=== PATIENT | female | born 1970 | race Caucasian/White ===

== ENCOUNTER → 2020-05-02 | Outpatient (CLI) | payer BC ==
--- NOTE | 2020-05-02 09:50 | MR ---
EXAMINATION TYPE: MR brain wo/w con DATE OF EXAM: 05/02/2020 COMPARISON: None HISTORY: Headaches, muscle pain, dizziness TECHNIQUE: Multiplanar, multisequence images of the brain and brainstem is performed without and with IV contras t, utilizing 9 mL intravenous Gadavist . FINDINGS: Diffusion weighted images demonstrate no evidence of a recent infarct or other diffusion ab normality. There is no extra-axial fluid collection or significant white matter signal abnormality. The ventricular system and cisternal spaces are normal in size and appearance. The brain volume is age appropriate. Midline structures demonstrate some mild increased signal in the left side of the viet and inversion recovery T2-weighted sequences partial clinical significance, some scattered hyperintensities in the deep white matter noted, sagittal image #26 of the inversion recovery dataset corresponds to axial im age #20, lesion measures only approximately 3 mm in the periventricular white matter, possibly left f rontal white matter similar size axial image #19 and also axial image 20, only approximately 3-5 lesi ons, right frontal white matter axial image 24 also measures only 3 mm. The craniocervical junction appears within normal limits. Post contrast images demonstrate no abnormal enhancement. The dural ve nous sinuses appear patent. The visualized sinuses are clear and the globes are intact. IMPRESSION: Nonspecific hyperintensities within the white matter of questionable clinical significanc e, findings may be indicative of underlying hypertension, migraine headaches, vasculitis, Lyme diseas e, multiple sclerosis felt to be less likely.
== END | disposition home or self-care (01) ==
LOC: RADMRIMAIN 07:28
PROVIDERS: ATTEND Nurse Practitioner Adult Health
DX: R90.89 Other abnormal findings on diagnostic imaging of central nervous system (principal)
CPT/HCPCS: 70553; A9585

== ENCOUNTER → 2020-06-13 | Outpatient (CLI) | payer BC ==
--- NOTE | 2020-06-13 14:00 | MR ---
EXAMINATION TYPE: MR cspine/lspine wo/w con DATE OF EXAM: 06/13/2020 COMPARISON: NONE HISTORY: 50-year-old female Stiffness, pain, ? MS. R90.82 G37.9 Technique: Multiplanar, multisequence images of the cervical spine followed by the lumbar spine were obtained before and after administration of 9 mL intravenous Gadavist gadolinium contrast. Sagittal PD sequence was added per MS protocol. FINDINGS: CERVICAL SPINE: No craniocervical junction abnormality, predental space widening, or prevertebral soft tissue swellin g. Straightening of the normal cervical doses with preserved alignment. Mild degenerative disc disease upper and mid cervical spine with mild disc desiccation and posterior disc bulging. Scattered mild facet and uncovertebral joint arthropathy. At C2-C3, mild facet arthropathy. No canal or foraminal stenosis. At C3-C4, facet arthropathy. Left-sided uncovertebral joint arthropathy. No significant canal or fora roel stenosis. At C4-C5, broad-based discussed by complex with uncovertebral joint and facet degenerative change. Th ere is mild to moderate left and mild right neuroforaminal stenosis. Disc osteophyte complex abuts th e ventral cord. Minimal narrowing of the spinal canal here. At C5-C6, broad-based discussed by complex with uncovertebral joint and facet degenerative change. Mi ld bilateral neuroforaminal stenoses. Impression onto the ventral thecal sac without significant spin al canal stenosis. At C6-C7, facet arthropathy without significant canal or foraminal stenosis. At C7/T1, no significant canal or foraminal stenosis. No abnormal enhancement within the spinal canal. Normal course and signal intensity of the cervical spinal cord. LUMBAR SPINE: Vertebral body heights are preserved and alignment is maintained. Straightening of the normal lumbar lordosis. Degenerative disc desiccation at L5-S1 with an enhancing posterior annular fissure and mild posterior disc bulge. Mild facet arthropathy lower lumbar spine. Fatty matrix hemangioma within the L3 and L4 vertebral bodies. Mildly diminished marrow signal sugges ts prominent red marrow. No definite bone marrow placement. Conus medullaris is normal. No abnormal enhancement otherwise seen within the spinal canal. No large focal disc herniation or significant spinal canal stenosis. On the right, no significant or foraminal stenosis. However, at L5-S1, disc material closely approach es and may abut the traversing right S1 nerve root. On the left, no significant neuroforaminal stenosis. No prevertebral or paravertebral soft tissue abnormality seen. COMBINED IMPRESSION: CERVICAL SPINE: 1. Mild degenerative disc disease upper and mid cervical spine. Scattered facet and uncovertebral young nt arthropathy. 2. Mild neuroforaminal stenoses as outlined above, mild to moderate on the left at C4-C5. 3. Posterior disc bulge at C4-C5 abuts the ventral cord minimally narrowing the spinal canal. 4. No cord compression or demyelinating plaques identified. LUMBAR SPINE: 1. Degenerative disc desiccation with small posterior disc bulge and annular fissure at L5-S1. Disc m aterial closely approaches and may abut the traversing right S1 nerve root at this level. 2. No significant spinal canal or foraminal stenosis seen.
== END | disposition home or self-care (01) ==
LOC: RADMRIMAIN 10:24
PROVIDERS: ATTEND Internal Medicine
DX: M48.02 Spinal stenosis, cervical region (principal); M51.27 Other intervertebral disc displacement, lumbosacral region; M50.221 Other cervical disc displacement at C4-C5 level; M50.321 Other cervical disc degeneration at C4-C5 level; M47.812 Spondylosis without myelopathy or radiculopathy, cervical region; G37.9 Demyelinating disease of central nervous system, unspecified
CPT/HCPCS: 72156; 72158; A9585

== ENCOUNTER → 2020-06-15 | Outpatient (CLI) | payer BC ==
--- NOTE | 2020-06-15 13:25 | MR ---
EXAMINATION TYPE: MR thoracic spine wo/w con DATE OF EXAM: 06/15/2020 COMPARISON: Correlation cervical and lumbar spine 06/13/2020 HISTORY: 50-year-old female Mid back Pain, MS Technique: Multiplanar, multisequence images of the thoracic spine were obtained before and after adm inistration of 9 mL intravenous Gadavist gadolinium contrast. Additional sagittal PD sequence per MS protocol. FINDINGS: Vertebral body heights are preserved and alignment is maintained. A few scattered fatty matrix hemangioma suggests within the T8 and T9 vertebral bodies. No suspicious bone marrow replacement. Disc interspaces are maintained. No prevertebral or paravertebral soft tissue abnormality. There is a right paracentral disc herniation extending towards the neuroforamen at T2-T3 without any significant spinal canal or neuroforaminal stenosis. Otherwise, no focal disc herniation or spinal ca nal stenosis. Mild facet arthropathy and thoracic spine particularly on the left at T2-T3. Mild left-sided neurofor aminal stenosis at this level. Normal course, caliber, and signal intensity of the thoracic spinal cord. No abnormal enhancement wi thin the spinal canal. IMPRESSION: 1. Thoracic spinal cord without any demyelinating plaques identified. 2. Small right paracentral disc herniation extending towards the neural foramen at T2-T3. No resultan t spinal canal or neuroforaminal stenosis. 3. Some facet degenerative change on the left at T2-T3 mildly narrowing the left-sided neuroforamen.
== END | disposition home or self-care (01) ==
LOC: RADMRIMAIN 10:23
PROVIDERS: ATTEND Nurse Practitioner Adult Health
DX: M51.24 Other intervertebral disc displacement, thoracic region (principal); M47.894 Other spondylosis, thoracic region; R90.82 White matter disease, unspecified; G37.9 Demyelinating disease of central nervous system, unspecified; R27.0 Ataxia, unspecified
CPT/HCPCS: 72157; A9585

== ENCOUNTER → 2020-12-05 | Outpatient (CLI) | payer BC | END | disposition home or self-care (01) | LOC: LABWHC1 15:43 | PROVIDERS: ATTEND Internal Medicine | DX: R05 Cough (principal); R07.0 Pain in throat; Z20.822 Contact with and (suspected) exposure to COVID-19 | CPT/HCPCS: 87081; U0003; C9803 ==

== ENCOUNTER → 2021-08-30 | Outpatient (CLI) | payer BC ==
--- NOTE | 2021-08-30 11:17 | US ---
EXAMINATION TYPE: US abdomen complete DATE OF EXAM: 08/30/2021 COMPARISON: US, MRCP CLINICAL HISTORY: K51.90 Ulcerative colitis. EXAM MEASUREMENTS: Liver Length: 12.3 cm Gallbladder Wall: 0.2 cm CBD: 0.4 cm Spleen: 12.6 cm Right Kidney: 12.4 x 4.9 x 5.0 cm Left Kidney: 12.4 x 5.1 x 5.3 cm Pancreas: slightly obscured by overlying bowel, portions visualized wnl Liver: wnl Gallbladder: possible sludge, seen LLD Evidence for sonographic Goldstein's sign: no CBD: wnl Spleen: upper limits of normal in size Right Kidney: measures slightly large Left Kidney: measures slightly large Upper IVC: wnl Abd Aorta: some portions obscured by overlying bowel gas, portions visualized wnl IMPRESSION: 1. There may be some mild sludge within the gallbladder. No shadowing gallstones are evident. 2. No suspicious acute changes by ultrasound of the abdomen
== END | disposition home or self-care (01) ==
LOC: RADUSWWP 08:18
PROVIDERS: ATTEND Internal Medicine
DX: K82.8 Other specified diseases of gallbladder (principal)
CPT/HCPCS: 76700

== ENCOUNTER → 2021-09-27 | Outpatient (CLI) | payer BC ==
--- NOTE | 2021-09-27 09:46 | NM ---
EXAMINATION TYPE: NM hepatobiliary w EF DATE OF EXAM: 09/27/2021 COMPARISON: Ultrasound 08/30/2021 HISTORY: K 82.8 TECHNIQUE: After the intravenous administration of 4.9 mCi Tc 99m Mebrofenin hepatobiliary scintigrap hy is performed. Immediate images post injection. FINDINGS: There is satisfactory initial accumulation of tracer by the liver. The gallbladder is visualized wit hin 8 minutes. The small bowel activity is noted within 38 minutes. At one hour 8 ounces of oral en sure plus is given to mimic CCK and gallbladder ejection fraction is calculated at 80 %, in the elisa l range. Therefore there is no scintigraphic evidence of cystic or common bile duct obstruction to s uggest acute cholecystitis or gallbladder dyskinesia. IMPRESSION: Exam is within normal limits.
== END | disposition home or self-care (01) ==
LOC: RADNMMAIN 06:59
PROVIDERS: ATTEND Surgery Plastic and Reconstructive Surgery
DX: K82.8 Other specified diseases of gallbladder (principal); K85.10 Biliary acute pancreatitis without necrosis or infection
CPT/HCPCS: 78226; A9537

== ENCOUNTER 2021-10-31 09:07 | Observation (INO) | payer BC ==
[2021-10-31 09:49] LABS: Basophils % (A) 0 %; Eosinophils # (A) 0.1 k/uL (0-0.7); Eosinophils % (A) 2 %; HCT 45.6 % (34.0-46.0); HGB 14.9 gm/dL (11.4-16.0); Lymphocytes # (A) 1.5 k/uL (1.0-4.8); Lymphocytes % (A) 21 %; MCH 32.1 pg (25.0-35.0); MCHC 32.8 g/dL (31.0-37.0); MCV 97.8 fL (80.0-100.0); Mean Platelet Volume 8.2; Monocytes # (A) 0.3 k/uL (0-1.0); Monocytes % (A) 4 %; Neutrophils % (A) 71 %; Platelet Count 249 k/uL (150-450); RBC 4.66 m/uL (3.80-5.40); RDW 11.7 % (11.5-15.5)
--- NOTE | 2021-10-31 09:51 | ED ---
Abdominal Pain HPI - General Chief Complaint: Abdominal Pain Stated Complaint: Abdominal pain Time Seen by Provider: 10/31/21 09:20 Source: patient Mode of arrival: ambulatory Limitations: no limitations - History of Present Illness Initial Comments: 51-year-old female presents emergency room with reported right upper quadrant abdominal pain. States the pain has been present for the past several months. She has been under the care of Dr. Piper. She had a previous ultrasound which demonstrated sludge in the gallbladder. She is doubled for surgery tomorrow for cholecystectomy. Patient states she's had increasing pain. She called Dr. Olmos's office who recommended that she go into the emergency department for evaluation. She denies any fevers. Admits to nausea without vomiting. No diarrhea. No other alleviating, precipitating or modifying factors - Related Data Home Medications Medication Instructions Recorded Confirmed Acetaminophen [Tylenol] 325 mg PO QID PRN 10/28/21 10/31/21 Ascorbic Acid [Vitamin C] 500 mg PO DAILY 10/28/21 10/31/21 Cholecalciferol [Vitamin D3 (25 25 mcg PO DAILY 10/28/21 10/31/21 Mcg = 1000 Iu)] Mesalamine [Pentasa] 500 mg PO 5XD 10/28/21 10/31/21 Omeprazole 20 mg PO DAILY 10/28/21 10/31/21 Potassium Gluconate [Potassium 99 mg PO DAILY 10/28/21 10/31/21 Gluconate ER] azaTHIOprine [Imuran] 50 mg PO HS 10/28/21 10/31/21 Previous Rx's Medication Instructions Recorded Acetaminophen Tab [Tylenol Tab] 1,000 mg PO Q6HR PRN #30 tablet 10/31/21 Ibuprofen [Motrin] 600 mg PO Q8HR PRN #30 tab 10/31/21 Simethicone [Gas-X] 125 mg PO AC-TID PRN #20 capsule 10/31/21 Allergies Allergy/AdvReac Type Severity Reaction Status Date / Time albuterol Allergy Severe Anaphylaxis- Verified 10/31/21 11:18 ALLERGIC TO THE SUSPENSION IN RX. meperidine HCl [From Demerol] AdvReac Nausea & Verified 10/31/21 11:18 Vomiting Review of Systems ROS Statement: Those systems with pertinent positive or pertinent negative responses have been documented in the HPI. ROS Other: All systems not noted in ROS Statement are negative. Past Medical History Past Medical History: Seizure Disorder Additional Past Medical History / Comment(s): ulcerative colitis. enlarged spleen possible crohns per pancreatitis History of Any Multi-Drug Resistant Organisms: None Reported Past Surgical History: Breast Surgery, Uterine Ablation Additional Past Surgical History / Comment(s): had benign tumor removed from right breast 20 yrs ago Past Anesthesia/Blood Transfusion Reactions: No Reported Reaction, Motion Sickness, Postoperative Nausea & Vomiting (PONV) Past Psychological History: Anxiety Smoking Status: Former smoker Past Alcohol Use History: None Reported Past Drug Use History: None Reported - Past Family History Mother Family Medical History: Cancer, Hypertension Additional Family Medical History / Comment(s): colon cancer General Exam Limitations: no limitations General appearance: alert, in no apparent distress Head exam: Present: atraumatic, normocephalic, normal inspection Eye exam: Present: normal appearance, PERRL, EOMI. Absent: scleral icterus, conjunctival injection, periorbital swelling ENT exam: Present: normal exam, mucous membranes moist Neck exam: Present: normal inspection. Absent: tenderness, meningismus, lymphadenopathy Respiratory exam: Present: normal lung sounds bilaterally. Absent: respiratory distress, wheezes, rales, rhonchi, stridor Cardiovascular Exam: Present: regular rate, normal rhythm, normal heart sounds. Absent: systolic murmur, diastolic murmur, rubs, gallop, clicks GI/Abdominal exam: Present: soft, tenderness (RUQ), normal bowel sounds. Absent: distended, guarding, rebound, rigid Extremities exam: Present: normal inspection, full ROM, normal capillary refill. Absent: tenderness, pedal edema, joint swelling, calf tenderness Back exam: Present: normal inspection Neurological exam: Present: alert, oriented X3, CN II-XII intact Psychiatric exam: Present: normal affect, normal mood Skin exam: Present: warm, dry, intact, normal color. Absent: rash Course Vital Signs 10/31/21 10/31/21 09:16 14:00 Temperature 98.3 F Pulse Rate 85 Respiratory 18 18 Rate Blood Pressure 122/77 O2 Sat by Pulse 98 Oximetry Medical Decision Making - Medical Decision Making Upon arrival patient was placed into room 11. A thorough history and physical exam was performed. IV is established laboratory studies are conducted. Patient is offered something for pain and for nausea however she refuses. Laboratory studies are reviewed and are within normal limits. HCG negative. Ultrasound demonstrates no acute process. I did seek with Dr. Olmos who requested the patient be admitted to her service. She is made nothing by mouth and taken to the floor in stable condition - Lab Data Result diagrams: 11/01/21 11:38 11/01/21 11:38 Lab Results 10/31/21 10/31/21 Range/Units 09:43 09:43 WBC 7.0 (3.8-10.6) k/uL RBC 4.66 (3.80-5.40) m/uL Hgb 14.9 (11.4-16.0) gm/dL Hct 45.6 (34.0-46.0) % MCV 97.8 (80.0-100.0) fL MCH 32.1 (25.0-35.0) pg MCHC 32.8 (31.0-37.0) g/dL RDW 11.7 (11.5-15.5) % Plt Count 249 (150-450) k/uL MPV 8.2 Neutrophils % 71 % Lymphocytes % 21 % Monocytes % 4 % Eosinophils % 2 % Basophils % 0 % Neutrophils # 5.0 (1.3-7.7) k/uL Lymphocytes # 1.5 (1.0-4.8) k/uL Monocytes # 0.3 (0-1.0) k/uL Eosinophils # 0.1 (0-0.7) k/uL Basophils # 0.0 (0-0.2) k/uL Sodium 139 (137-145) mmol/L Potassium 4.1 (3.5-5.1) mmol/L Chloride 105 (98-107) mmol/L Carbon Dioxide 24 (22-30) mmol/L Anion Gap 10 mmol/L BUN 11 (7-17) mg/dL Creatinine 0.61 (0.52-1.04) mg/dL Est GFR (CKD-EPI)AfAm >90 (>60 ml/min/1.73 sqM) Est GFR (CKD-EPI)NonAf >90 (>60 ml/min/1.73 sqM) Glucose 101 H (74-99) mg/dL Calcium 9.3 (8.4-10.2) mg/dL Total Bilirubin 0.9 (0.2-1.3) mg/dL AST 35 (14-36) U/L ALT 38 H (4-34) U/L Alkaline Phosphatase 87 (38-126) U/L Total Protein 7.7 (6.3-8.2) g/dL Albumin 4.7 (3.5-5.0) g/dL Lipase 165 (23-300) U/L - EKG Data EKG Comments: EKG demonstrates normal sinus rhythm with a ventricular rate of 83. DE intervals 158. QRS 96. QTC of 451. No acute ST segment elevations or depressions concerning for ischemic changes Disposition Clinical Impression: Abdominal pain Disposition: ADMITTED IP TO THIS HOSP Condition: Stable Is patient prescribed a controlled substance at d/c from ED?: No Decision to Admit Reason: Admit from EC Decision Time: 11:18
[2021-10-31 09:58] LABS: ALT 38 U/L (4-34); AST 35 U/L (14-36); African American GFR (CKD) >90 (>60 ml/min/1.73 sqM); Albumin 4.7 g/dL (3.5-5.0); Alkaline Phosphatase 87 U/L (38-126); Anion Gap 10 mmol/L; Blood Urea Nitrogen 11 mg/dL (7-17); Calcium 9.3 mg/dL (8.4-10.2); Carbon Dioxide 24 mmol/L (22-30); Chloride 105 mmol/L (98-107); Glucose 101 mg/dL (74-99); Lipase 165 U/L (23-300); Non-African American GFR(CKD) >90 (>60 ml/min/1.73 sqM); Potassium 4.1 mmol/L (3.5-5.1); Sodium 139 mmol/L (137-145); Total Bilirubin 0.9 mg/dL (0.2-1.3); Total Protein 7.7 g/dL (6.3-8.2)
--- NOTE | 2021-10-31 10:40 | US ---
EXAMINATION TYPE: US gallbladder DATE OF EXAM: 10/31/2021 COMPARISON: 08/30/2020 CLINICAL HISTORY: ruq abd pain. EXAM MEASUREMENTS: Liver Length: 13.6 cm Gallbladder Wall: 0.1 cm CBD: 0.3 cm Right Kidney: 12.1 x 4.6 x 4.4 cm Pancreas: Obscured by bowel gas Liver: wnl Gallbladder: wnl Evidence for sonographic Goldstein's sign:no CBD: wnl Right Kidney: wnl IMPRESSION: 1. No acute process as visualized.
[2021-10-31 11:08] LABS: Appearance,Urine Cloudy (Clear); Bacteria,Urine Occasional /hpf; Bilirubin,Urine Negative (Negative); Blood,Urine Moderate (Negative); Color,Urine Yellow; Glucose,Urine (UA) Negative (Negative); Ketones,Urine Negative (Negative); Leukocyte Esterase,Urine Negative (Negative); Mucus,Urine Rare /hpf; Nitrite,Urine Negative (Negative); Protein,Urine Trace (Negative); RBC,Urine 4 /hpf (0-5); Specific Gravity,Urine 1.021 (1.001-1.035); Squamous Epithelial Cell,Urine 5 /hpf (0-4); Urobilinogen,Urine <2.0 mg/dL (<2.0); WBC,Urine 1 /hpf (0-5)
[2021-10-31] MEDS ORDERED: NALOXONE 0.4 MG/ML 1 ML VIAL IV PRN (11:18)
[2021-10-31] MEDS ORDERED: IOPAMIDOL CONTRAST (ORAL USE) VIAL PO PRN (11:42)
--- NOTE | 2021-10-31 13:50 | CT ---
EXAMINATION TYPE: CT abdomen pelvis w con DATE OF EXAM: 10/31/2021 COMPARISON: 02/19/2015 HISTORY: Abdominal pain CT DLP: 1141.9 mGycm CONTRAST: CT scan of the abdomen and pelvis is performed with Oral Contrast and with IV Contrast, patient injec alecia with 100 mL of Isovue 370. FINDINGS: LUNG BASES-: No visible nodule. No infiltrate. LIVER/GB: No calcified gallstones. No space occupying hepatic lesion. Biliary tree is of normal ca liber. PANCREAS: No inflammation. No distinct mass. SPLEEN: No splenic enlargement. No lesion seen. ADRENALS: No nodule. No thickening. KIDNEYS/BLADDER: No hydronephrosis. No nephrolithiasis. No distinct renal mass. Urinary bladder g rossly unremarkable. BOWEL: Normal appendix. Normal bowel caliber. No inflammation. GENITAL ORGANS: No gross abnormality. LYMPH NODES: No greater than 1cm abdominal or pelvic lymph nodes are appreciated. AORTA: No significant abnormality. OSSEOUS STRUCTURES: No significant abnormality is seen. OTHER: No significant additional abnormality is seen. IMPRESSION: 1. No significant abnormality to account for the patient's symptoms.
[2021-10-31] MEDS: SODIUM CHLORIDE 0.9% 1,000 ML IV SCH (14:00)
[2021-10-31] MEDS ORDERED: INDOCYANINE GREEN 25 MG VIAL IV STA (15:58)
[2021-10-31] MEDS ORDERED: SCOPOLAMINE 1.5MG/72HR PATCH TRANSDERM STA (15:58)
[2021-10-31] MEDS ORDERED: GABAPENTIN 300 MG CAP PO STA (15:58)
--- NOTE | 2021-10-31 15:58 | P.GSHP ---
History of Present Illness H&P Date: 10/31/21 CHIEF COMPLAINT: Severe abdominal pain HISTORY OF PRESENT ILLNESS: The patient is a 51 year old female who presents to the emergency room with moderate to severe epigastric including left upper quad rant abdominal pain. Patient has pre-existing history of gallbladder disorder. She reports her pain is worse after eating or moving along the epigastrium and left upper quadrant. Patient reports symptoms has been ongoing and became severe in the last 24-48 hours. She has Crohn's disease including hepatosplenomegaly. She also reports history of pancreatitis. Patient presented to the emergency room regarding severe abdominal pain. PAST MEDICAL HISTORY: See list and reviewed PAST SURGICAL HISTORY: See list and reviewed MEDICATIONS: See list and reviewed ALLERGIES: See list and reviewed SOCIAL HISTORY: See list and reviewed FAMILY HISTORY: See list and reviewed REVIEW OF ORGAN SYSTEMS: CONSTITUTIONAL: No fevers or chills. No recent weight loss. EYES: Denies any trouble with vision. No glasses. HEENT: No difficulties with hearing. No nosebleeds. No difficulty swallowing. RESPIRATORY: Denies pneumonia. Denies any troubles with breathing or dyspnea on exertion. CARDIOVASCULAR: Denies any chest pain, palpitations, or recent heart attacks. GASTROINTESTINAL: Has gastric subcu reflux disease including Crohn's disease. Hepatosplenomegaly. Has hepatomegaly. GENITOURINARY: Denies any blood in urine or increased urinary frequency. NEUROLOGICAL: Denies any numbness or tingling along the distal extremities. No seizure disorders or headaches. MUSCULOSKELETAL: Denies any back pain, stiffness or joint arthritis. SKIN: No current skin cancer. No rash. PSYCHIATRIC: Denies current depression or suicidal thoughts. Has generalized anxiety disorder. ENDOCRINE: Denies current thyroid disorders. Denies any blood sugar glucose intolerance. HEME/LYMPHATIC: Denies any lumps and bumps around the neck. No recent deep venous thrombosis. ALLERGY/IMMUNOLOGY: No immunoglobulin therapy. No immune deficiencies. BREAST: Denies current breast lumps, pain or nipple discharge. PHYSICAL EXAM: VITALS: Reviewed CONSTITUTIONAL: Well developed and in no acute distress. EYES: Conjuctivae without sclera icterus. Extraocular movements grossly intact. HEAD, EARS, NOSE, THROAT: Moist buccal mucosa. Head is atraumatic, normocephalic. Hears conversational speech. No nasal drainage. NECK: Supple. No JV distention. No thyroidomegaly. RESPIRATORY: Non-labored respirations and equal bilateral excursions. No gross wheezes. CARDIOVASCULAR: Regular rate and rhythm. Palpable 2+ radial pulses. ABDOMEN: Tender epigastric including the left upper quadrant. No palpable m asses. LYMPH: No neck lymphadenopathy. MUSCULOSKELETAL: Nail and fingers with good capillary refill. SKIN: Warm and well perfused with good skin turgor. NEUROLOGIC: Cranial nerves II through XII grossly intact. No focal or lateralizing signs. PSYCH: Appropriate affect. Alert and oriented to person, place and time. Displays appropriate insight. CLINCAL LABS: Reviewed. ALT elevated. Lipase normal. IMAGING: Independently gallbladder ultrasound without dilation of the common bile duct. This is my independent interpretation. RADIOLOGY: Report reviewed. RECORDS: previous old records for her prior gallbladder ultrasound with gallbladder sludge and CT of the abdomen and pelvis splenomegaly. ASSESSMENT: 1. Moderate to severe epigastric including left upper quadrant abdominal pain. 2. Cholecystitis, clinical 3. Ulcerative colitis 4. Elevated ALT PLAN: 1. Due to her moderate severe pain, CT of the abdomen and pelvis also ordered. 2. Robotic cholecystectomy described for moderate severe epigastric abdominal pain. Laparoscopy with assessment of left upper quadrant also described. 3. Admission observation reviewed. ADDENDUM: CT of the on the pelvis and the pelvic reviewed demonstrating moderate stool blunted and redundancy of the left upper quadrant from the splenic flexure. Enlarged spleen including enlarged left lobe of the liver identified. This is my independent interpretation. PLAN: The patient's persistent symptoms including acute on chronic abdominal pa in, cholecystectomy described with possible laparoscopy. Benefits and risks were reviewed. Past Medical History Past Medical History: Seizure Disorder Additional Past Medical History / Comment(s): ulcerative colitis. enlarged spleen possible crohns per pancreatitis History of Any Multi-Drug Resistant Organisms: None Reported Past Surgical History: Breast Surgery, Uterine Ablation Additional Past Surgical History / Comment(s): had benign tumor removed from right breast 20 yrs ago Past Anesthesia/Blood Transfusion Reactions: No Reported Reaction, Motion Sickness, Postoperative Nausea & Vomiting (PONV) Past Psychological History: Anxiety Smoking Status: Former smoker Past Alcohol Use History: None Reported Past Drug Use History: None Reported - Past Family History Mother Family Medical History: Cancer, Hypertension Additional Family Medical History / Comment(s): colon cancer Medications and Allergies Home Medications Medication Instructions Recorded Confirmed Type Acetaminophen [Tylenol] 325 mg PO QID PRN 10/28/21 10/31/21 History Ascorbic Acid [Vitamin C] 500 mg PO DAILY 10/28/21 10/31/21 History Cholecalciferol [Vitamin D3 (25 25 mcg PO DAILY 10/28/21 10/31/21 History Mcg = 1000 Iu)] Mesalamine [Pentasa] 500 mg PO 5XD 10/28/21 10/31/21 History Omeprazole 20 mg PO DAILY 10/28/21 10/31/21 History Potassium Gluconate [Potassium 99 mg PO DAILY 10/28/21 10/31/21 History Gluconate ER] azaTHIOprine [Imuran] 50 mg PO HS 10/28/21 10/31/21 History Allergies Allergy/AdvReac Type Severity Reaction Status Date / Time albuterol Allergy Severe Anaphylaxis- Verified 10/31/21 11:18 ALLERGIC TO THE SUSPENSION IN RX. meperidine HCl [From Demerol] AdvReac Nausea & Verified 10/31/21 11:18 Vomiting Surgical - Exam Vital Signs Temp Pulse Resp BP Pulse Ox 98.3 F 85 18 122/77 98 10/31/21 09:16 10/31/21 09:16 10/31/21 09:16 10/31/21 09:16 10/31/21 09:16 Results - Labs 10/31/21 09:43 10/31/21 09:43 Abnormal Lab Results - Last 24 Hours (Table) 10/31/21 10/31/21 Range/Units 09:43 10:45 Glucose 101 H (74-99) mg/dL ALT 38 H (4-34) U/L Urine Appearance Cloudy H (Clear) Urine Protein Trace H (Negative) Urine Blood Moderate H (Negative) Ur Squamous Epith Cells 5 H (0-4) /hpf Urine Bacteria Occasional H (None) /hpf Urine Mucus Rare H (None) /hpf Diabetes panel 10/31/21 Range/Units 09:43 Sodium 139 (137-145) mmol/L Potassium 4.1 (3.5-5.1) mmol/L Chloride 105 (98-107) mmol/L Carbon Dioxide 24 (22-30) mmol/L BUN 11 (7-17) mg/dL Creatinine 0.61 (0.52-1.04) mg/dL Glucose 101 H (74-99) mg/dL Calcium 9.3 (8.4-10.2) mg/dL AST 35 (14-36) U/L ALT 38 H (4-34) U/L Alkaline Phosphatase 87 (38-126) U/L Total Protein 7.7 (6.3-8.2) g/dL Albumin 4.7 (3.5-5.0) g/dL Calcium panel 10/31/21 Range/Units 09:43 Calcium 9.3 (8.4-10.2) mg/dL Albumin 4.7 (3.5-5.0) g/dL Pituitary panel 10/31/21 Range/Units 09:43 Sodium 139 (137-145) mmol/L Potassium 4.1 (3.5-5.1) mmol/L Chloride 105 (98-107) mmol/L Carbon Dioxide 24 (22-30) mmol/L BUN 11 (7-17) mg/dL Creatinine 0.61 (0.52-1.04) mg/dL Glucose 101 H (74-99) mg/dL Calcium 9.3 (8.4-10.2) mg/dL Adrenal panel 10/31/21 Range/Units 09:43 Sodium 139 (137-145) mmol/L Potassium 4.1 (3.5-5.1) mmol/L Chloride 105 (98-107) mmol/L Carbon Dioxide 24 (22-30) mmol/L BUN 11 (7-17) mg/dL Creatinine 0.61 (0.52-1.04) mg/dL Glucose 101 H (74-99) mg/dL Calcium 9.3 (8.4-10.2) mg/dL Total Bilirubin 0.9 (0.2-1.3) mg/dL AST 35 (14-36) U/L ALT 38 H (4-34) U/L Alkaline Phosphatase 87 (38-126) U/L Total Protein 7.7 (6.3-8.2) g/dL Albumin 4.7 (3.5-5.0) g/dL Assessment and Plan (1) Cholecystitis Current Visit: Yes Status: Acute Code(s): K81.9 - CHOLECYSTITIS, UNSPECIFIED SNOMED Code(s): 43086073 (2) Epigastric pain Current Visit: Yes Status: Acute Code(s): R10.13 - EPIGASTRIC PAIN SNOMED Code(s): 51052593 (3) Ulcerative colitis Current Visit: Yes Status: Acute Code(s): K51.90 - ULCERATIVE COLITIS, UNSPECIFIED, WITHOUT COMPLICATIONS SNOMED Code(s): 84625286 (4) Elevated ALT measurement Current Visit: Yes Status: Acute Code(s): R74.01 - ELEVATION OF LEVELS OF LIVER TRANSAMINASE LEVELS SNOMED Code(s): 924583784 (5) Left upper quadrant pain Current Visit: Yes Status: Acute Code(s): R10.12 - LEFT UPPER QUADRANT PAIN SNOMED Code(s): 065747872 (6) Splenomegaly Current Visit: Yes Status: Acute Code(s): R16.1 - SPLENOMEGALY, NOT ELSEWHERE CLASSIFIED SNOMED Code(s): 06485681 (7) Hepatomegaly Current Visit: Yes Status: Acute Code(s): R16.0 - HEPATOMEGALY, NOT ELSEWHERE CLASSIFIED SNOMED Code(s): 05705608 (8) Generalized anxiety disorder Current Visit: Yes Status: Acute Code(s): F41.1 - GENERALIZED ANXIETY DISORDER SNOMED Code(s): 48015137
[2021-10-31] MEDS ORDERED: HEPARIN SODIUM,PORCINE/PF 5,000 UNIT/0.5 ML SYRINGE SQ PRN (15:59)
[2021-10-31] MEDS ORDERED: MIDAZOLAM 2 MG/2 ML VIAL IV ONE ×3 (16:29→17:08)
[2021-10-31] MEDS ORDERED: LACTATED RINGERS 1,000 ML IV ONE ×2 (16:30→18:54)
[2021-10-31] MEDS ORDERED: ONDANSETRON 4 MG/2 ML VIAL IVP ONE (16:30)
[2021-10-31] MEDS ORDERED: DEXAMETHASONE SOD PHOSPHATE 4 MG/ML 1 ML VIAL IV ONE (16:31)
[2021-10-31] MEDS ORDERED: GABAPENTIN 300 MG CAP PO ONE (16:37)
[2021-10-31] MEDS ORDERED: fentaNYL (PF) 50 MCG/ML 2 ML AMP ONE (17:52)
[2021-10-31] MEDS ORDERED: GLYCOPYRROLATE 0.2 MG/ML 2 ML VIAL ONE (17:52)
[2021-10-31] MEDS ORDERED: SUCCINYLCHOLINE CHLORIDE 100 MG/5 ML SYR IV ONE (17:52)
[2021-10-31] MEDS ORDERED: ROCURONIUM 10 MG/ML (5 ML VIAL) IV ONE (17:52)
[2021-10-31] MEDS ORDERED: INDOCYANINE GREEN 25 MG VIAL IV ONE (17:52)
[2021-10-31] MEDS ORDERED: LIDOCAINE 1% INJ 10MG/ML (20 ML MDV) ONE (17:52)
[2021-10-31] MEDS ORDERED: PROPOFOL 10 MG/ML 20 ML VIAL IV ONE (17:52)
[2021-10-31] MEDS ORDERED: MIDAZOLAM 2 MG/2 ML VIAL ONE (17:52)
[2021-10-31] MEDS ORDERED: NEOSTIGMINE 1 MG/ML 10 ML VIAL ONE (17:52)
[2021-10-31] MEDS ORDERED: BUPIVACAIN-EPI 0.25%-1:200,000 30 ML VIAL SQ ONE (18:10)
--- NOTE | 2021-10-31 19:12 | P.OP ---
Date of Procedure: 10/31/21 Description of Procedure: SURGEON: JAVIER PACKER MD PREOPERATIVE DIAGNOSES: 1. Cholecystitis with epigastric abdominal pain 2. Left upper quadrant abdominal pain 3. History of pancreatitis 4. Ulcerative colitis 5. Hepatosplenomegaly POSTOPERATIVE DIAGNOSES: 1. Cholecystitis with epigastric abdominal pain 2. Left upper quadrant abdominal pain 3. History of pancreatitis 4. Ulcerative colitis 5. Hepatosplenomegaly 6. Chronic cholecystitis 7. Peritoneal adhesions, right upper quadrant and left upper quadrant OPERATION: 1. Robotic-assisted da Kaz Xi laparoscopic lysis of adhesions 2. Robotic-assisted da Kaz Xi laparoscopic cholecystectomy, multiport with FIREFLY ESTIMATED BLOOD LOSS: 5 mL. SPECIMENS REMOVED: Gallbladder. COMPLICATIONS: None. OPERATIVE FINDINGS: 1. Moderate scarring over entire gallbladder with peritoneal adhesions, pericholecystic with features of chronic cholecystitis 2. 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 Redundant splenic flexure or left upper quadrant 4. Anterior spiraling cystic duct INDICATIONS: The patient is a 89year-old female who presents with cholecystitis including moderate severe epigastric and left upper quadrant abdominal pain. Robotic assisted laparoscopic approach was described. Benefits and risks of the procedure including but not limited to bleeding, infection, injury to the biliary tree was described. Informed consent was obtained. DESCRIPTION OF PROCEDURE: Patient was brought to the operating room, placed in supine position. After general induction, the abdomen had been prepped and draped in standard sterile fashion. The robotic da Kaz XI system was primed. After a timeout protocol was performed, the patient had been prepped and draped in standard sterile fashion. The patient was injected with indocyanine green. A 5 mm 0 degrees laparoscopic trocar entry was performed along the left upper quadrant. The abdomen insufflated to 15 mmHg pressure which was tolerated well. Diagnostic laparoscopy demonstrated no injury to bowel viscera or mesentery. The liver surface was unremarkable. Next, two 8 mm robotic ports were placed along the right upper abdomen. The camera 8-mm port was maintained along the epigastrium. Another 8 mm port was placed along the left upper abdominal wall after exchanging the 5 mm port. Please note that the ports were placed at least 10 to 15 cm away from the target anatomy of the gallbladder. The robot was docked along the left lateral abdomen. The patient was repositioned in reverse Trendelenburg position. Using a grasper for arm 3, a grasper for arm 4, including hook cautery for arm 1, the robotic system was docked and primed as described. Instruments were interchanged by the child welfare assistant including hook cautery, Bovie cautery and clip appliers. I had sat at the console. The gallbladder was scarred with peritoneal adhesions. Lysis of adhesions was performed to free the gallbladder from the surrounding tissues. Additionally, at the left upper quadrant, tense congenital band disease of the abdominal wall and splenic flexure was identified and lysed. Highly redundant splenic flexure was found. Large left lobe of the liver including splenomegaly was identified. Next attention was brought to the infundibulum and cystic structures. The infundibulum and cystic duct were dissected free from surrounding tissues. The cystic duct was isolated. A spiraling cystic duct was found. FIREFLY was used to identify the cystic artery and cystic structures. A critical view of safety was obtained. Large PLASTIC clips were used throughout the entire case. Using a clip graduate student, 2 clips were placed at the junction of the infundibulum and cystic duct. The cystic duct was divided between clips. Next, the cystic artery was similarly clipped and cauterized. Electro-Bovie cautery was used to remove the gallbladder from the hepatic fossa. Hemostasis was checked and found to be adequate. The robot was undocked. I re-scrubbed into the case. Using a 10 mm Endo Catch bag via the left upper quadrant incision, the specimen was removed from the abdominal cavity. All pneumoperitoneum instruments were evacuated from the abdominal cavity. The incisions were reapproximated using 4-0 Monocryl in an interrupted subcuticular fashion. Fascial defects were less than 8 mm in size. Please note along the trocar sites, local anesthetic was placed as a field block prior to insertion of all instruments. Liquid glue was applied to the skin. At the end of the procedure needle, sponge, and instrument count had been verified correct by the bacteriology technician. The patient was transferred to postanesthesia care unit in stable condition. Intraoperative films were shared with the patient's family.
[2021-10-31] MEDS ORDERED: HYDROmorphone 0.5 MG/0.5 ML SYRINGE IVP ONE ×3 (19:26→20:20)
[2021-10-31] MEDS ORDERED: KETOROLAC 15 MG/ML 1 ML VIAL IVP ONE (20:25)
[2021-11-01] MEDS: SODIUM CHLORIDE 0.9% 1,000 ML IV SCH (02:25)
[2021-11-01] MEDS ORDERED: ONDANSETRON 4 MG/2 ML VIAL IVP PRN (03:58)
[2021-11-01] MEDS ORDERED: HYDROmorphone 1 MG/ML 1 ML SYRINGE IVP PRN (04:00)
[2021-11-01] MEDS: KETOROLAC 30 MG/ML 1 ML VIAL IVP SCH ×2 (04:46→05:54)
[2021-11-01] MEDS: ACETAMINOPHEN TAB 500 MG TAB PO SCH ×2 (04:47→13:21)
[2021-11-01] MEDS ORDERED: METOCLOPRAMIDE 5 MG/ML 2 ML VIAL IVP SCH (06:00)
[2021-11-01 07:34] VITALS: BP 98/60; PULSE 74; RESP 16; TEMP 98.3
[2021-11-01 12:06] LABS: Basophils % (A) 0 %; Eosinophils % (A) 0 %; HGB 14.3 gm/dL (11.4-16.0); Lymphocytes # (A) 1.1 k/uL (1.0-4.8); Lymphocytes % (A) 9 %; MCHC 32.5 g/dL (31.0-37.0); MCV 98.5 fL (80.0-100.0); Mean Platelet Volume 8.4; Monocytes # (A) 0.5 k/uL (0-1.0); Monocytes % (A) 4 %; Neutrophils # (A) 10.2 k/uL (1.3-7.7); Neutrophils % (A) 86 %; Platelet Count 260 k/uL (150-450); RBC 4.46 m/uL (3.80-5.40); RDW 11.6 % (11.5-15.5); WBC 11.9 k/uL (3.8-10.6)
[2021-11-01 12:20] LABS: ALT 54 U/L (4-34); AST 53 U/L (14-36); African American GFR (CKD) >90 (>60 ml/min/1.73 sqM); Albumin 4.3 g/dL (3.5-5.0); Albumin/Globulin Ratio 1.5; Alkaline Phosphatase 85 U/L (38-126); Anion Gap 12 mmol/L; Blood Urea Nitrogen 13 mg/dL (7-17); Calcium 9.5 mg/dL (8.4-10.2); Carbon Dioxide 24 mmol/L (22-30); Chloride 101 mmol/L (98-107); Globulin 2.8 g/dL; Glucose 109 mg/dL (74-99); Non-African American GFR(CKD) >90 (>60 ml/min/1.73 sqM); Potassium 3.8 mmol/L (3.5-5.1); Sodium 137 mmol/L (137-145); Total Bilirubin 0.7 mg/dL (0.2-1.3); Total Protein 7.1 g/dL (6.3-8.2)
--- NOTE | 2021-11-01 12:43 | P.DS ---
Providers Date of admission: 10/31/21 09:55 Expected date of discharge: 11/01/21 Attending physician: Trudy Piper Primary care physician: Priscilla Hanson - Noe Diagnosis(es) (1) Cholecystitis Current Visit: Yes Status: Acute (2) Epigastric pain Current Visit: Yes Status: Acute (3) Ulcerative colitis Current Visit: Yes Status: Acute (4) Elevated ALT measurement Current Visit: Yes Status: Acute (5) Left upper quadrant pain Current Visit: Yes Status: Acute (6) Splenomegaly Current Visit: Yes Status: Acute (7) Hepatomegaly Current Visit: Yes Status: Acute (8) Generalized anxiety disorder Current Visit: Yes Status: Acute Patient Condition at Discharge: Stable Plan - Discharge Summary Discharge Rx Participant: No New Discharge Prescriptions: New Ibuprofen [Motrin] 600 mg PO Q8HR PRN #30 tab PRN Reason: Pain Acetaminophen Tab [Tylenol Tab] 1,000 mg PO Q6HR PRN #30 tablet PRN Reason: Pain Simethicone [Gas-X] 125 mg PO AC-TID PRN #20 capsule PRN Reason: Pain Continue Acetaminophen [Tylenol] 325 mg PO QID PRN PRN Reason: Pain Cholecalciferol [Vitamin D3 (25 Mcg = 1000 Iu)] 25 mcg PO DAILY Mesalamine [Pentasa] 500 mg PO 5XD Omeprazole 20 mg PO DAILY azaTHIOprine [Imuran] 50 mg PO HS Ascorbic Acid [Vitamin C] 500 mg PO DAILY Potassium Gluconate [Potassium Gluconate ER] 99 mg PO DAILY Discharge Medication List Acetaminophen [Tylenol] 325 mg PO QID PRN 10/28/21 [History] Ascorbic Acid [Vitamin C] 500 mg PO DAILY 10/28/21 [History] Cholecalciferol [Vitamin D3 (25 Mcg = 1000 Iu)] 25 mcg PO DAILY 10/28/21 [History] Mesalamine [Pentasa] 500 mg PO 5XD 10/28/21 [History] Omeprazole 20 mg PO DAILY 10/28/21 [History] Potassium Gluconate [Potassium Gluconate ER] 99 mg PO DAILY 10/28/21 [History] azaTHIOprine [Imuran] 50 mg PO HS 10/28/21 [History] Acetaminophen Tab [Tylenol Tab] 1,000 mg PO Q6HR PRN #30 tablet 10/31/21 [Rx] Ibuprofen [Motrin] 600 mg PO Q8HR PRN #30 tab 10/31/21 [Rx] Simethicone [Gas-X] 125 mg PO AC-TID PRN #20 capsule 10/31/21 [Rx] Follow up Appointment(s)/Referral(s): Trudy Piper MD [STAFF PHYSICIAN] - 11/07/21 () Priscilla Hanson MD [Primary Care Provider] - 1-2 days Patient Instructions/Handouts: *[facility] - Managing Your Pain After Surgery Without Opioids, Low Fat Diet (DC), Laparoscopic Cholecystectomy (DC) Activity/Diet/Wound Care/Special Instructions: Recommend low-fat diet for the next 2 days. No lifting over 10 pounds in 2 weeks until Nov 14. May shower. No bath tub soaks for two weeks until Nov 14. Diet as tolerated. Use Tylenol, simethicone and ibuprofen or Aleve scheduled for the next 24-48 hours for best pain relief. Use ice along incisions for today to prevent swelling. Discharge Disposition: HOME SELF-CARE
== END 2021-11-01 13:40 | disposition home or self-care (01) ==
LOC: OR 09:07 → 6NMEDSUR 09:55
PROVIDERS: ADMIT Surgery Plastic and Reconstructive Surgery; ATTEND Surgery Plastic and Reconstructive Surgery
DX: K81.1 Chronic cholecystitis (principal); R16.2 Hepatomegaly with splenomegaly, not elsewhere classified; K66.0 Peritoneal adhesions (postprocedural) (postinfection); K21.9 Gastro-esophageal reflux disease without esophagitis; K50.90 Crohn's disease, unspecified, without complications; Z20.822 Contact with and (suspected) exposure to COVID-19; F41.1 Generalized anxiety disorder; Z79.899 Other long term (current) drug therapy; Z88.5 Allergy status to narcotic agent; Z88.8 Allergy status to other drugs, medicaments and biological substances; Z87.891 Personal history of nicotine dependence; Z87.19 Personal history of other diseases of the digestive system; Z80.0 Family history of malignant neoplasm of digestive organs; Z82.49 Family history of ischemic heart disease and other diseases of the circulatory system
CPT/HCPCS: 47562; S2900; 36415; 74177; 76705; 80053; 81001; 81025; 83690; 85025; 87635; 88304; 93005; 99285